=== PATIENT | male | born 1960 | race American Indian/Alaskan Native ===

== ENCOUNTER 2016-11-10 08:32 | Day surgery (SDC) | payer BC ==
[~2016-11-10] VITALS: Ht 177.8 cm; Wt 77.1 kg
[~2016-11-10 08:32] MED LIST: TAMS0.4C2 PO
[2016-11-10] MEDS ORDERED: IV RINGERS,LACTATED 1000ML 1,000 ML IV ONE (09:00)
[2016-11-10] MEDS ORDERED: BUPIVAC MPF-EPI 0.5%-1:200000 30 ML VIAL. ONE (09:05)
[2016-11-10] MEDS ORDERED: DESFLURANE > 120 MINUTES IH ONE (09:37)
[2016-11-10] MEDS ORDERED: ROCURONIUM 100 MG/10 ML VIAL. ONE (09:38)
[2016-11-10] MEDS ORDERED: PROPOFOL 20 ML IV ONE (09:38)
[2016-11-10] MEDS ORDERED: ONDANSETRON PF 4 MG/2 ML VIAL. ONE (09:38)
[2016-11-10] MEDS ORDERED: NEOSTIGMINE METHYLSULFATE 5 MG/5 ML SYRINGE. ONE (09:38)
[2016-11-10] MEDS ORDERED: MIDAZOLAM HCL/PF 2 MG/2 ML VIAL. ONE (09:38)
[2016-11-10] MEDS ORDERED: fentaNYL PF VIAL 100 MCG/2 ML VIAL ONE ×3 (09:38→11:56)
[2016-11-10] MEDS ORDERED: GLYCOPYRROLATE 1 MG/5 ML VIAL. ONE (09:38)
[2016-11-10] MEDS ORDERED: KETOROLAC 60 MG/2 ML INJ FOR OR. ONE (09:39)
[2016-11-10] MEDS ORDERED: LIDOCAINE 2% PF Vial for OR 5 ML VIAL. ONE (09:39)
[2016-11-10] MEDS ORDERED: DEXAMETHASONE SOD PHOS 20 MG/5 ML VIAL. ONE (09:39)
[2016-11-10] MEDS ORDERED: OXYC-323 PO (10:12)
[2016-11-10] MEDS ORDERED: PROCHLORPERAZINE 10 MG/2 ML VIAL. ONE (11:59)
[2016-11-10] MEDS: fentaNYL PF VIAL 100 MCG/2 ML VIAL IV PRN ×2 (12:05→12:25)
[2016-11-10] MEDS ORDERED: IV RINGERS,LACTATED 1000ML 1,000 ML IV SCH (12:10)
--- NOTE | 2016-11-10 12:10 | PDOC ---
BRIEF OPERATIVE NOTE Pre-Op Diagnosis bilateral inguinal hernia lap bih repair with mesh geno dolan ebl 25 ivf 1100 isabel well to rr stable. #[id number] ANDERS CHISHOLM MD Nov 10, 2016 12:10
[2016-11-10] MEDS ORDERED: LIDOCAINE 1% 1 ML SYRINGE. ID PRN (12:15)
[2016-11-10] MEDS ORDERED: fentaNYL PF VIAL 100 MCG/2 ML VIAL IV PRN (12:15)
[2016-11-10] MEDS ORDERED: HYDROmorphone 2 MG/ML VIAL IV PRN (12:15)
[2016-11-10] MEDS ORDERED: MORPHINE SULFATE 2 MG/ML DISP.SYRIN. IV PRN (12:15)
[2016-11-10] MEDS ORDERED: PROCHLORPERAZINE 10 MG/2 ML VIAL. IV PRN (12:15)
[2016-11-10] MEDS ORDERED: ONDANSETRON PF 4 MG/2 ML VIAL. IV PRN (12:15)
[2016-11-10 12:49] VITALS: BP 116/79
[2016-11-10] MEDS ORDERED: oxyCODONE/APAP 5/325 1 TAB TABLET PO ONE (13:00)
--- NOTE | 2016-11-10 15:54 | OP ---
DATE OF SURGERY: 11/10/2016 PREOPERATIVE DIAGNOSIS: Bilateral inguinal hernia. POSTOPERATIVE DIAGNOSIS: Bilateral inguinal hernia. NAME OF THE PROCEDURE: Laparoscopic bilateral inguinal hernia repair with mesh. SURGEON: Anders Chisholm MD ANESTHESIA: General. ESTIMATED BLOOD LOSS: 25 mL. INTRAVENOUS FLUIDS: 1100 mL. INDICATIONS FOR THE PROCEDURE: The patient is a 56-year-old male who presents with bilateral inguinal hernia. He is here for repair. FINDINGS: He had a small right-sided indirect hernia with cord lipoma. On the left, he had a large left indirect hernia with a large cord lipoma. DESCRIPTION OF PROCEDURE: After informed consent was obtained, the patient was taken to the operating room and placed in the supine position. After adequate induction of general anesthesia, he was prepped and draped in usual sterile fashion. An umbilical skin incision was made with a scalpel, subcutaneous tissues spread with a hemostat. [facility] was used to grab the fascia and lift it anteriorly. Veress was used to gain access to the peritoneal cavity. Low opening pressures confirmed intraperitoneal placement of Veress. Pneumoperitoneum to 15 mmHg was established followed by placement of a 10 mm port. A 5 mm 30 degree lens was inserted which revealed good port placement. No evidence of entry trauma. He was placed head down. Two additional ports were placed up to the area, was injected with local anesthetic. There were 5 mm ports placed laterally at the left and the right side of the umbilicus and also ilioinguinal nerve blocks were performed bilaterally. Dissection was originated on the right side and the peritoneum was scored from the ASIS across to the midline on the right side. The preperitoneal space was then developed. In doing so, there was a small defect made in the peritoneal flap that was approximated with PDS Endoloops. At the completion of dissection, the patient had a cord lipoma that was able to be resected. It was sent to pathology for examination. He had a small indirect hernia that was reduced. The peritoneal flap had been skeletonized well proximal on the spermatic cord structures and deep to the direct space and the femoral space and dissection was carried to the midline. At this point, dissection was performed on the left side. The peritoneum was then scored from the ASIS across to the midline with cautery and the preperitoneal space developed. The patient had a large indirect hernia that was able to be reduced. After the completion of the dissection, the peritoneal flap was skeletonized such that the direct space, femoral space and indirect space were all widely exposed. Dissection was carried to the midline on the contralateral side. A large cord lipoma that was reduced and resected was sent to pathology for examination. A left-sided large piece of 3D mesh was then placed within the preperitoneal space and secured with a secure strap so that the mesh covered the indirect, direct and femoral spaces and extended to the midline. A piece of right-sided mesh was then brought on to the field, 3D maxed and was placed in the preperitoneal space. It was also secured with a secure strap in an identical fashion. Care was taken to make sure that tacks were not placed along the Jac's ligament, the tacks were not placed inferior to the iliopubic tract laterally and that the tacks avoided the inferior epigastrics. At this point, the peritoneal flap was then reapproximated with a secure strap. At the completion of dissection, the mesh was entirely covered. It did not shift or roll upon reapproximation of the flap. There were no defects or gaps in the peritoneum and there was no exposed mesh. Fascial closure device was used to close the fascia at the umbilical incision using 0 Vicryl suture. The inguinal dissection was hemostatic. The ports removed under direct vision; they were hemostatic. Pneumoperitoneum was desufflated. Skin incisions were closed with 4-0 Monocryl in subcuticular fashion. Sterile dressings were placed. He tolerated the procedure well. There were no apparent complications. He has been transferred in stable condition to the recovery room. ANDERS CHISHOLM MD DR: ROSALIA/lacy JOB#: [id number] / [id number] HARLAN Stoddard
--- NOTE | 2016-11-11 15:05 | PATHOLOGY ---
PATHOLOGY REPORT * * * * * * * * FINAL DIAGNOSIS: A. Fibroadipose tissue, laparoscopic right inguinal hernia repair: - Consistent with hernia sac. B. Fibroadipose tissue, laparoscopic left inguinal hernia repair: - Consistent with hernia sac, showing congestion. (JPM:mml; 11/11/2016) REPORT ELECTRONICALLY SIGNED BY: Maikel Schaffer M.D. DATE/TIME: 11/11/2016 15:04 * * * * * * * * GROSS PATHOLOGY: A. Received in formalin labeled "Melo Nuno, right inguinal hernia sac," is a segment of lobulated fibroadipose tissue measuring 5.4 x 2.9 x 0.8 cm in maximum dimensions. Sectioning reveals homogeneous, bright yellow cut surfaces. [employer] Mud Analysis tissue is submitted in cassette A1. B. Received in formalin labeled "left inguinal hernia sac," is a segment of lobulated fibroadipose tissue measuring 5.6 x 3.8 x 1.4 cm in maximum dimensions. Sectioning reveals homogeneous, bright yellow cut surfaces. Well [employer] Mud Analysis tissue is submitted in cassette B1. (JPM; 11/10/16) INITIAL CPT CODE(S): A; 50734 B; 66839 Professional services [place] [address] Technical services performed by [facility] at [address] [place] [address], [address] [address]. SPECIMEN(S) RECEIVED: A.Right inguinal hernia sac B.Left inguinal hernia sac CLINICAL HISTORY: Bilateral inguinal hernia PATIENT: MELO NUNO /AGE: 608/28/1960 (Age: 56) PATIENT #: [id number] ALT CASE #: SPECIMEN COLLECTION DATE: 11/10/2016 SPECIMEN RECEIVED DATE: 11/10/2016 [facility] - [address] [place] [address] - PHONE: [phone] * * * END OF REPORT * * *
== END 2016-11-10 13:24 | disposition home or self-care (01) ==
LOC: SURG 08:32
PROVIDERS: ATTEND Surgery
DX: K40.20 Bilateral inguinal hernia, without obstruction or gangrene, not specified as recurrent (principal); D17.79 Benign lipomatous neoplasm of other sites; Z72.89 Other problems related to lifestyle; Z87.891 Personal history of nicotine dependence
CPT/HCPCS: 49650; C1781; J0690; J0780; J1100; J1885; J2250; J2405; J2704; J2710; J3010; J3490; J7120; J2001